=== PATIENT | female | born 1995 | race African-American/Black ===

== ENCOUNTER 2017-06-26 19:41 | Emergency (ER) | payer BC ==
[~2017-06-26 19:41] MED LIST: PROT40TA PO; ZOFR4TAB3 SL
[2017-06-26 19:44] VITALS: BP 141/89; PULSE 65; RESP 16; TEMP 98.5; O2SAT 100
[2017-06-26] MEDS ORDERED: SODIUM CHLORIDE 0.9% FLUSH 10 ML FLUSH IV FLUSH PRN (20:30)
--- NOTE | 2017-06-26 20:54 | RADRPT ---
EXAM DATE/TIME: 06/26/2017 20:27 [place] COMPARISON: No previous studies available for comparison. INDICATIONS : Chest pain. MEDICAL HISTORY : None. SURGICAL HISTORY : None. ENCOUNTER: Initial ACUITY: 2 days PAIN SCORE: 7/10 LOCATION: Bilateral chest FINDINGS: A single view of the chest demonstrates the lungs to be symmetrically aerated without evidence of mas s, infiltrate or effusion. The cardiomediastinal contours are unremarkable. Osseous structures are intact. CONCLUSION: No acute disease. Kvng Karimi MD on June 26, 2017 at 20:52 Board Certified Radiologist. This report was verified electronically.
--- NOTE | 2017-06-26 20:55 | PD ---
HPI Chief Complaint: Pain: Acute or Chronic Time Seen by Provider: 20:19 Travel History International Travel<30 days: No Contact w/Intl Traveler<30days: No Traveled to known affect area: No History of Present Illness HPI 22-year-old female here for evaluation of several different complaints. The patient reports vaginal discharge and discomfort. She states she has an IUD in place. She is sexually active with 2 partners. She has had pelvic infections in the past. She is also complaining of some lower abdominal cramping going on for about a week. She also complains of intermittent substernal chest pain which she is unable to describe. Currently she denies abdominal pain or chest pain. No fevers or chills. No urinary symptoms. PFSH Past Medical History Medical History: Denies Significant Hx Immunizations Current: Yes Tetanus Vaccination: Unknown ?: Unknown Past Surgical History Surgical History: No Previous Surgery Social History Alcohol Use: Yes ("SOCIALLY") Tobacco Use: No Substance Use: No Allergies-Medications (Allergen,Severity, Reaction): Coded Allergies: No Known Allergies (Unverified Adverse Reaction, Unknown, 06/26/17) Reported Meds & Prescriptions Reported Meds & Active Scripts Active No Active Prescriptions or Reported Medications Review of Systems Except as stated in HPI: all other systems reviewed are Neg Physical Exam Narrative GENERAL: Well-developed, well-nourished, comfortable, no apparent distress. SKIN: Focused skin assessment warm/dry. HEAD: Atraumatic. Normocephalic. EYES: Pupils equal and round. No scleral icterus. No injection or drainage. ENT: Mucous membranes pink and moist. NECK: Trachea midline. No JVD. CARDIOVASCULAR: Regular rate and rhythm. No murmur appreciated. RESPIRATORY: No accessory muscle use. Clear to auscultation. Breath sounds equal bilaterally. GASTROINTESTINAL: Abdomen soft, non-tender, nondistended. [employer]EL[employer]: Exam performed in the presence of female nurse. Normal external genitalia. Moderate amount of purulent discharge in vaginal vault coming from cervical os. Cervix appears normal. Mild CMT and uterine tenderness. No adnexal masses or tenderness. MUSCULOSKELETAL: No obvious deformities. No clubbing. No cyanosis. No edema. NEUROLOGICAL: Awake and alert. No obvious cranial nerve deficits. Motor grossly within normal limits. Normal speech. PSYCHIATRIC: Appropriate mood and affect; insight and judgment normal. Data Data Last Documented VS Vital Signs Date Time Temp Pulse Resp B/P (MAP) Pulse Ox O2 Delivery O2 Flow Rate FiO2 06/26/17 19:44 98.5 65 16 141/89 (106) 100 Room Air Orders Orders Complete Blood Count With Diff (06/26/17 20:22) Comprehensive Metabolic Panel (06/26/17 20:22) Prothrombin Time / Inr (Pt) (06/26/17 20:22) Act Partial Throm Time (Ptt) (06/26/17 20:22) Urinalysis - C+S If Indicated (06/26/17 20:22) Iv Access Insert/Monitor (06/26/17 20:22) Ecg Monitoring (06/26/17 20:22) Oximetry (06/26/17 20:22) Sodium Chloride 0.9% Flush (Ns Flush) (06/26/17 20:30) Ed Urine Pregnancytest Poc (06/26/17 20:22) Gc And Chlamydia Pcr (06/26/17 20:22) Wet Prep Profile (06/26/17 20:22) Electrocardiogram (06/26/17 20:22) Ckmb (Isoenzyme) Profile (06/26/17 20:22) Troponin I (06/26/17 20:22) Chest, Single Ap (06/26/17 20:22) Azithromycin Powd Pack (Zithromax Powd P (06/26/17 21:30) Lidocaine 1% Inj (50 Ml) (Xylocaine 1% I (06/26/17 21:30) Ceftriaxone Inj (Rocephin Inj) (06/26/17 21:30) CKMB (06/26/17 21:00) CKMB% (06/26/17 21:00) Labs Laboratory Tests Test 06/26/17 20:45 06/26/17 21:00 06/26/17 21:25 Urine Color YELLOW Urine Turbidity HAZY Urine pH 6.5 Urine Specific [place] 1.032 Urine Protein TRACE mg/dL Urine Glucose (UA) NEG mg/dL Urine Ketones NEG mg/dL Urine Occult Blood NEG Urine Nitrite NEG Urine Bilirubin NEG Urine Urobilinogen 2.0 MG/DL Urine Leukocyte Esterase NEG Urine RBC 1 /hpf Urine WBC 2 /hpf Urine Squamous Epithelial Cells 5 /hpf Urine Mucus MANY /lpf Microscopic Urinalysis Comment CULT NOT INDICATED White Blood Count 7.1 TH/MM3 Red Blood Count 4.42 MIL/MM3 Hemoglobin 12.2 GM/DL Hematocrit 37.0 % Mean Corpuscular Volume 83.8 FL Mean Corpuscular Hemoglobin 27.7 PG Mean Corpuscular Hemoglobin Concent 33.1 % Red Cell Distribution Width 13.5 % Platelet Count 235 TH/MM3 Mean Platelet Volume 10.1 FL Neutrophils (%) (Auto) 46.0 % Lymphocytes (%) (Auto) 45.3 % Monocytes (%) (Auto) 7.0 % Eosinophils (%) (Auto) 1.3 % Basophils (%) (Auto) 0.4 % Neutrophils # (Auto) 3.3 TH/MM3 Lymphocytes # (Auto) 3.2 TH/MM3 Monocytes # (Auto) 0.5 TH/MM3 Eosinophils # (Auto) 0.1 TH/MM3 Basophils # (Auto) 0.0 TH/MM3 CBC Comment AUTO DIFF Prothrombin Time 12.6 SEC Prothromb Time International Ratio 1.1 RATIO Activated Partial Thromboplast Time 23.8 SEC Blood Urea Nitrogen 11 MG/DL Creatinine 0.74 MG/DL Random Glucose 84 MG/DL Total Protein 7.7 GM/DL Albumin 3.5 GM/DL Calcium Level 8.5 MG/DL Alkaline Phosphatase 117 U/L Aspartate Amino Transf (AST/SGOT) 35 U/L Alanine Aminotransferase (ALT/SGPT) 16 U/L Total Bilirubin 0.4 MG/DL Sodium Level 140 MEQ/L Potassium Level 4.6 MEQ/L Chloride Level 106 MEQ/L Carbon Dioxide Level 27.9 MEQ/L Anion Gap 6 MEQ/L Estimat Glomerular Filtration Rate 118 ML/MIN Total Creatine Kinase 138 U/L Troponin I LESS THAN 0.02 NG/ML Clue Cells (Wet Prep) NONE SEEN Vaginal Trichomonas (Wet Prep) NONE SEEN Vaginal Yeast (Wet Prep) NONE SEEN MDM Medical Decision Making Medical Screen Exam Complete: Yes Emergency Medical Condition: Yes Differential Diagnosis PID, BV, Trichomonas, UTI, cystitis, acute intra-abdominal/surgical process unlikely, musculoskeletal chest pain, pericarditis, Narrative Course Patient empirically treated for gonorrhea and chlamydia. Vital signs reviewed. CBC is unremarkable. CMP is unremarkable. Cardiac enzymes are negative. UA shows many mucus, not suggestive of UTI. Wet prep is negative for use, negative for clue cells, negative for Trichomonas. Patient was made aware of all findings. She does have some CMT and uterine tenderness on pelvic exam with purulent discharge from the cervix. She was empirically treated for gonorrhea and chlamydia. There are no peritoneal signs on her abdominal exam, and I do not believe further imaging is warranted at this time. She was advised to have her sexual partners tested and treated as well. [employer] follow-up this week. She was informed on when to return to the emergency department pitcher verbalizes understanding and agreement with plan. Diagnosis Primary Impression: PID (acute pelvic inflammatory disease) Referrals: [facility] 3 days Additional Instructions: Follow-up with an [employer] physician this week. Return to the emergency department for worsening symptoms or any other concerns. Scripts No Active Prescriptions or Reported Meds Disposition: 01 DISCHARGE HOME Condition: Stable Primitivo Sánchez MD Jun 26, 2017 20:55
[2017-06-26] MEDS ORDERED: LIDOCAINE HCL 1% 50 ML VIAL IM ONE (21:30)
[2017-06-26] MEDS ORDERED: AZITHROMYCIN PWD FOR SUSP 1 GM PACKET PO ONE (21:30)
[2017-06-26 21:50] LABS: BLOOD, URINE NEG (NEG); COMMENT (UR) CULT NOT INDICATED; CULTURE IF INDICATED CULT NOT INDICATED; GLUCOSE,URINE NEG (NEG); KETONE, URINE NEG (NEG); MUCUS URINE MANY /lpf (OCC); NITRITE,URINE NEG (NEG); PH, URINE 6.5 (5.0-8.5); SQUAMOUS EPITHELIAL CELL URINE 5 /hpf (0-5); URINE COLOR YELLOW (YELLW/STRAW)
[2017-06-26 21:50] LABS: AUTOMATED NEUTROPHIL # 3.3 TH/MM3 (1.8-7.7); BASOPHIL % 0.4 % (0.0-2.0); EOSINOPHIL # 0.1 TH/MM3 (0-0.4); EOSINOPHIL % 1.3 % (0.0-4.0); LYMPH % 45.3 % (9.0-44.0); LYMPHOCYTE # 3.2 TH/MM3 (1.0-4.8); MEAN CELL VOLUME 83.8 FL (80.0-100.0); MEAN CORPUSCULAR HEMOGLOBIN 27.7 PG (27.0-34.0); MEAN CORPUSCULAR HGB CONC 33.1 % (32.0-36.0); PLATELET COUNT 235 TH/MM3 (150-450); RED BLOOD COUNT 4.42 MIL/MM3 (4.00-5.30); RED CELL DISTRIBUTION WIDTH 13.5 % (11.6-17.2); WHITE BLOOD COUNT 7.1 TH/MM3 (4.0-11.0)
[2017-06-26 22:00] LABS: INTERNATIONAL NORMALIZED RATIO 1.1 RATIO; PROTHROMBIN TIME - PATIENT 12.6 SEC (9.8-11.6)
[2017-06-26 22:01] LABS: APTT (PATIENT) 23.8 SEC (24.3-30.1)
[2017-06-26 22:02] LABS: HEMO FLAGS AUTO DIFF
[2017-06-26 22:16] LABS: ANION GAP 6 MEQ/L (5-15)
[2017-06-26 22:18] LABS: ALKALINE PHOSPHATASE 117 U/L (45-117); ALT (GPT) 16 U/L (10-53); AST (GOT) 35 U/L (15-37); BICARBONATE 27.9 MEQ/L (21.0-32.0); BLOOD UREA NITROGEN 11 MG/DL (7-18); CHLORIDE 106 MEQ/L (98-107); CREATINE KINASE 138 U/L (26-192); GLOMERULAR FILTRATION RATE 118 ML/MIN (>89); SODIUM (NA) 140 MEQ/L (136-145); TOTAL BILIRUBIN ADULT 0.4 MG/DL (0.2-1.0)
[2017-06-26 22:23] LABS: POTASSIUM 4.6 MEQ/L (3.5-5.1)
[2017-06-26 22:35] LABS: CKMB LESS THAN 0.5 NG/ML (0.5-3.6)
[2017-06-26 22:52] LABS: PLATELET ESTIMATE SMEAR NORMAL (NORMAL); PLATELET MORPHOLOGY CLUMPED (NORMAL); SCAN/DIFF AUTO DIFF CONFIRMED
[2017-06-26 23:40] LABS: CHLAMYDIA PCR NOT DETECTED (NOT DETECT); NEISSERIA PCR NOT DETECTED (NOT DETECT)
--- NOTE | 2017-06-27 04:57 | EKG ---
Date Performed: 06/26/2017 Time Performed: 21:15:58 PTAGE: 22 years EKG: SINUS BRADYCARDIA WITH FIRST DEGREE AV BLOCK ABNORMAL ECG No significant change from prior electrocardiogram. PREVIOUS TRACING : 06/26/2017 21.15 DOCTOR: Franklin Boggs Interpretating Date/Time 06/27/2017 09:32:53
== END 2017-06-26 22:40 | disposition home or self-care (01) ==
LOC: NEPD 19:41
DX: N73.0 Acute parametritis and pelvic cellulitis (principal); R00.1 Bradycardia, unspecified; I44.0 Atrioventricular block, first degree
CPT/HCPCS: 71010; 80053; 81001; 82550; 82552; 84484; 84703; 85025; 85610; 85730; 87210; 87491; 87591; 93005; 96372; 99285; J0696